=== PATIENT | female | born 1935 | race Caucasian/White ===

== ENCOUNTER 2016-10-07 22:22 | Emergency (ER) | payer OTHER ==
[~2016-10-07] VITALS: Ht 157.5 cm; Wt 54.4 kg
[~2016-10-07 22:22] MED LIST: BENA5TAB3 PO; DORZ2SOL9 OP; LATA0.00 OP; METO-158 PO; TRIA25CA; [UNRECOGNIZED DRUG - CODE]
[2016-10-07] MEDS ORDERED: cloNIDine HCL 0.1 MG TAB ONE (22:50)
[2016-10-07] MEDS ORDERED: cloNIDine HCL 0.1 MG TAB PO ONE ×2 (23:00)
[2016-10-08] MEDS ORDERED: IBUPROFEN 400 MG TAB PO ONE (00:15)
[2016-10-08] MEDS ORDERED: HYDROcodone-ACET 5/325MG TAB PO ONE (00:15)
[2016-10-08 00:51] VITALS: BP 188/70
== END 2016-10-08 01:08 | disposition home or self-care (01) ==
LOC: ER 22:33 → EDUNIT# 22:33 → ER 10-08 01:08
DX: S42.292A Other displaced fracture of upper end of left humerus, initial encounter for closed fracture (principal); W19.XXXA Unspecified fall, initial encounter; I10 Essential (primary) hypertension; Y93.89 Activity, other specified; Y99.8 Other external cause status; Y92.89 Other specified places as the place of occurrence of the external cause
CPT/HCPCS: 29105; 73060; 93005

== ENCOUNTER → 2017-02-22 | Outpatient (CLI) | payer OTHER, MEDICAID ==
[~2017-02-22] MED LIST changes: -BENA5TAB3 PO; +BENA5TAB5 PO
== END | disposition home or self-care (01) ==
LOC: XYW 09:02
PROVIDERS: ATTEND Internal Medicine Cardiovascular Disease
DX: Z01.818 Encounter for other preprocedural examination (principal); I08.0 Rheumatic disorders of both mitral and aortic valves
CPT/HCPCS: 93306